=== PATIENT | male | born 1965 | race Caucasian/White ===

== ENCOUNTER 2018-10-19 00:54 | Inpatient (IN) | payer OTHER, SELFPAY ==
[2018-10-19] VITALS (9 sets, daily range): BP systolic 162–218; BP diastolic 83–104; PULSE 52–84; RESP 14–18; TEMP 36.4–37.3; O2SAT 92–99; BMI 29.2
--- NOTE | 2018-10-19 00:56 | ED.NEUROSD ---
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 States he thinks on or Saturday he noticed he had trouble using his right hand and could not write a check. Additionally his thoughts were mottled and clear and since then his speech has been mottled and abnormal. He has had multiple occasions where he has felt a bit unsteady and states that he has had trouble finding words. He denies any recent injury nor illness such as headaches, fever or chills. Onset (ago): day(s) Location: speech, right arm and ataxia History of same: No Severity: mild Quality: weak, numb, tingling and constant Relieving factors: none Exacerbating factors: none Context: sudden onset On Anticoagulants: No Associated symptoms: confusion Treatments Prior to Arrival: none Related Data Allergies Allergy/AdvReac Type Severity Reaction Status Date / Time No Known Drug Allergies Allergy Verified 10/19/18 01:08 Review of Systems Constitutional Denies chills, Denies fever(s), Denies lethargy and Reports weakness Eyes Denies change in vision, Denies eye discharge, Denies irritation and Denies loss of vision ENT Ears, Nose, Mouth, and Throat: Denies change in voice, Denies neck pain and Denies sore throat Cardiovascular Denies chest pain, Denies irregular heart rhythm, Denies lightheadedness, Denies palpitations, Denies dyspnea, Denies dyspnea on exertion and Denies orthopnea Respiratory Denies cough, Denies dyspnea, Denies dyspnea on exertion and Denies wheezing Gastrointestinal Gastrointestinal: Denies abdominal pain, Denies change in bowel habits, Denies diarrhea, Denies nausea and Denies vomiting Genitourinary Denies hematuria, Denies flank pain, Denies urinary incontinence and Denies urinary urgency Musculoskeletal Denies neck pain Integumentary/Breasts Denies pruritus, Denies erythema, Denies rash and Denies wounds Neurologic Reports abnormal speech, Reports confusion, Denies loss of vision, Reports sensory deficit and Reports weakness Psychiatric Denies anxiety, Reports confusion, Denies depression, Denies homicidal ideation and Denies suicidal ideation Endocrine Denies palpitations Hematologic/Lymphatic Denies easy bruising Allergic/Immunologic Denies wheezing PFSH Social History Smoking Status: Current every day smoker Social History Smoking Status: Current every day smoker Exam Narrative Exam Narrative: GENERAL: 53-year-old male appears stated age and in mild distress. His speech is clearly slurred HEAD: Atraumatic. Normocephalic. No temporal or scalp tenderness. EYES: Pupils equal round and reactive. Extraocular motions intact. No scleral icterus. No injection or drainage. ENT: Nose without bleeding, purulent drainage or septal hematoma. Throat without erythema, tonsillar hypertrophy or exudate. Uvula midline. Airway patent. NECK: Trachea midline. No JVD or lymphadenopathy. Supple, nontender, no meningeal signs. CARDIOVASCULAR: Regular rate and rhythm without murmurs, gallops, or rubs. RESPIRATORY: Clear to auscultation. Breath sounds equal bilaterally. No wheezes, rales, or rhonchi. GASTROINTESTINAL: Abdomen soft, non-tender, nondistended. No hepato-splenomegaly, or palpable masses. No guarding. EXTREMITIES: No clubbing, cyanosis, or edema. No joint tenderness, effusion, or edema noted. BACK: Nontender without deformity or crepitance. No flank tenderness. NEURO: AOx3. SKIN: No rash or erythema. Initial Vital Signs Initial Vital Signs: Vital Signs Temperature 97.9 F 10/19/18 01:09 Pulse Rate 84 10/19/18 01:09 Respiratory Rate 16 10/19/18 01:09 Blood Pressure 218/104 H 10/19/18 01:09 Pulse Oximetry 99 10/19/18 01:09 Scores NIH Stroke Scale Level of Conciousness: Alert, keenly responsive Ask month/age: Answers both questions correctly. Open/close eyes, close hand: Performs both tasks correctly Best gaze horizontal: Normal Visual monteiro: No visual loss Facial palsy: Minor paralysis, flattened nasolabial fold, asymmetry on smiling Left arm drift: No drift for full 10 sec Right arm drift: No drift for full 10 sec Left leg drift: No drift for full 10 sec Right leg drift: No drift for full 10 sec Limb ataxia: Absent Sensory on face/arms/legs: Normal, no sensory loss Best language: No aphasia, normal Dysarthria: Mild to mod,some slurring Extinction or inattention: No abnormality Total NIH Stroke scale score: 2 Course Orders Ordered: ED Orders 10/19/18 EKG-12 Lead Routine 10/19/18 01:03 Basic Metabolic Panel Stat Complete Blood Count AUTO DIFF Stat Partial Thromboplastin Time Stat Prothrombin Time INR Stat 10/19/18 01:17 CT head/brain wo con Stat Urine Drug Screen, Rapid Stat EKG-12 Lead Stat Sodium Chloride (Normal Saline 0.9%) 1,000 mls @ 150 mls/hr IV CONT MEIR Last Admin: 10/19/18 01:50 Dose: 150 mls/hr Consultations Consultation #1: hospitalist is happy to accept on his service Vital Signs - 8 hr 10/19/18 01:09 Temperature 97.9 F Pulse Rate 84 Respiratory Rate 16 Blood Pressure 218/104 H Pulse Oximetry 99 MDM - Neuro Symptoms/Deficit Lab Data Result diagrams: 10/19/18 01:03 10/19/18 01:03 Lab Results 10/19/18 10/19/18 10/19/18 Range/Units 01:03 01:03 01:03 WBC 9.6 (4.5-11.0) X10^3/uL RBC 5.19 (4.5-5.9) X10^6/uL Hgb 15.9 (13.5-17.5) g/dL Hct 46.0 (41-53) % MCV 88.6 (80-100) fL MCH 30.6 (26-34) PG MCHC 34.5 (30-36) % RDW 14.1 (11.6-14.8) % Plt Count 195 (150-400) X10^3/uL Neut % (Auto) 52.2 (50-75) % Lymph % (Auto) 31.7 (25-40) % [place] % (Auto) 10.2 (3-14) % Eos % (Auto) 4.8 H (2-4) % Baso % (Auto) 1.1 (0-2) % Neut # (Auto) 5000 (1782-0415) /uL Lymph # (Auto) 3000 (1324-3690) /uL [place] # (Auto) 1000 H (0-900) /uL Eos # (Auto) 500 H (0-450) /uL Baso # (Auto) 100 (0-100) /uL PT 11.4 (10.1-12.7) SECONDS INR 1.0 (0.9-1.3) APTT 31 (26.4-36.2) SECONDS Sodium 139 (137-145) mmol/L Potassium 3.8 (3.4-5.1) mmol/L Chloride 101 (98-107) mmol/L Carbon Dioxide 29 (22-32) mmol/L BUN 16 (9-20) mg/dL Creatinine 1.00 (0.66-1.25) mg/dL Estimated GFR > 60.0 (>60) mL/min BUN/Creatinine Ratio 16.0 (6-22) Glucose 111 H (70-100) mg/dL Calcium 9.9 (8.4-10.2) mg/dL Imaging Data CT scan - head: Radiologist's impression: No intracranial hemorrhage or mass effect ECG Data Attestation: I personally reviewed and interpreted this ECG as follows: Prior ECG tracings: not available for review Interpretation: EKG is normal sinus rhythm rate [74] and free of any signs of ischemia or ectopy. No ST segmental elevation or depression. No T wave inversions Discharge Plan Departure Patient Disposition: Admitted As Inpatient Clinical Impression: Cerebrovascular accident Qualifiers: CVA mechanism: unspecified Qualified Code(s): I63.9 - Cerebral infarction, unspecified Admit Date/Time: 10/19/18 02:20 Admit Provider: Ermias Conte
--- NOTE | 2018-10-19 01:17 | DI.CT.S_ITS ---
PROCEDURE: CT HEAD/BRAIN WO CON INDICATIONS: stroke TECHNIQUE: Noncontrast 4.5 mm thick angled axial sections acquired from the foramen magnum to the vertex, with coronal and sagittal reformats. For radiation dose reduction, the following was used: automated exposure control, adjustment of mA and/or kV according to patient size. COMPARISON: None. FINDINGS: Image quality: Diagnostic. CSF spaces: Basal cisterns are patent. No extra-axial fluid collections. Ventricles are normal in size and shape. Brain: No midline shift. No intracranial masses or hemorrhage. [place]-white matter interface is normal. Note is made of tortuosity of the and basilar artery. No Skull and face: Calvarium and visualized facial bones are intact, without suspicious lesions. Sinuses: Visualized sinuses and mastoids are clear. IMPRESSION: Unremarkable head CT. No acute intracranial hemorrhage. Note: The preliminary [facility] report and the final report are concordant. Dictated by: Nitesh Juárez M.D. on 10/19/2018 at 6:58 Approved by: Nitesh Juárez M.D. on 10/19/2018 at 6:59
[2018-10-19 01:23] LABS: Prothrombin Time 11.4 SECONDS (10.1-12.7)
[2018-10-19 01:24] LABS: Add Manual Diff / Slide Review NO; Basophils Absolute Auto 100 /uL (0-100); Basophils Percent Auto 1.1 % (0-2); Eosinophils Absolute Auto 500 /uL (0-450); Eosinophils Percent Auto 4.8 % (2-4); Hemoglobin 15.9 g/dL (13.5-17.5); Lymphocytes Absolute Auto 3000 /uL (1100-4500); Lymphocytes Percent Auto 31.7 % (25-40); Mean Corpuscular HGB Conc 34.5 % (30-36); Mean Corpuscular Hemoglobin 30.6 PG (26-34); Mean Corpuscular Volume 88.6 fL (80-100); Monocytes Absolute Auto 1000 /uL (0-900); Monocytes Percent Auto 10.2 % (3-14); Neutrophils Absolute Auto 5000 /uL (1500-7000); Neutrophils Percent Auto 52.2 % (50-75); Platelet Count 195 X10^3/uL (150-400); Red Blood Cell Count 5.19 X10^6/uL (4.5-5.9); Red Cell Distribution Width 14.1 % (11.6-14.8); White Blood Cell Count 9.6 X10^3/uL (4.5-11.0)
[2018-10-19 01:25] LABS: PTT Partial Thromboplastin Tim 31 SECONDS (26.4-36.2)
[2018-10-19 01:26] LABS: Blood Urea Nitrogen 16 mg/dL (9-20); Calcium 9.9 mg/dL (8.4-10.2); Carbon Dioxide 29 mmol/L (22-32); Chloride 101 mmol/L (98-107); Estimated Glomerular Filt Rate > 60.0 mL/min (>60); Glucose 111 mg/dL (70-100); HEMOLYSIS 17 (0-50); Potassium 3.8 mmol/L (3.4-5.1); Sodium 139 mmol/L (137-145)
[2018-10-19] MEDS: SODIUM CHLORIDE 0.9% 1,000 ML 150 ML IV (01:50)
--- NOTE | 2018-10-19 02:33 | DI.MRI.S_ITS ---
PROCEDURE: MR STROKE Pre- and post-contrast brain MRI, non-contrast brain MR angiogram, pre- and postcontrast neck MR angiogram INDICATIONS: Stroke, symptoms persisting > 24 hours TECHNIQUE: Brain: Noncontrast axial T1 spin echo, axial T2 fast spin echo, sagittal and axial FLAIR, coronal T2 fast spin echo, axial gradient echo, axial diffusion and ADC through the brain. After the administration of contrast, axial 3D VIBE of the cranial vasculature and brain. Brain MRA: Non-contrast 3-D time of flight MR angiogram, with multiple dpozujt-zdsksonmo-deoyztgleg (MIP) reformats performed. Neck MRA: Axial and sagittal TruFISP through the neck. Coronal dynamic MR angiogram during administration of contrast in the arterial and venous phases, with 3-dimenstional dorglkz-btsngvdlw-stxzxeahvr (MIP) reformats constructed from subtraction images. COMPARISON: [facility], CT, CT HEAD/BRAIN WO CON, 10/19/2018, 1:27. FINDINGS: Image quality: Excellent. BRAIN: CSF spaces: Ventricles are normal in size and shape. Basal cisterns are patent. No extra-axial fluid collections. Brain: Within the left rodri, there is abnormal diffusion weighted signal seen, as on series 20 image 58. There is associated abnormal dark signal seen, as on series 21 image 8 and there is developing T2-weighted/STIR signal seen within the left rodri at this site. No intracranial bleeds or mass effects. [place]-white matter interface is normal. Mild brain parenchymal volume loss is seen. Brainstem appears normal. Normal intravascular flow voids are present. No abnormal intracranial enhancement. Skull and face: Calvarial marrow signal is normal. Orbits appear normal. Sinuses: Sinuses and mastoids are clear. S-shaped nasal septal deviation can be seen. BRAIN MR ANGIOGRAM: Anterior circulation: Intracranial internal carotid arteries are normal in size and enhancement. There is a highly diminutive right A1 segment, with a corresponding robust left A1 segment. This is considered to be a normal developmental variant of the [place], of typically no clinical consequence. The flow within the paired anterior cerebral arteries is otherwise normal and symmetric. The flow within the middle cerebral arteries is normal and symmetric. The anterior communicating artery is seen. No stenoses, occlusions, or aneurysms. Posterior circulation: The right vertebral artery is not seen. K artery is unremarkable. No abnormality of the basilar artery can be seen. The flow within the posterior cerebral arteries is normal and symmetric. No stenoses, occlusions, or aneurysms. NECK MR ANGIOGRAM: Carotids: Great vessels demonstrate a conventional anatomy as they arise from the aortic arch. The origins of the common carotid arteries appear patent. The calibers and courses of both common carotid arteries are normal. The bifurcation regions appear normal bilaterally. The internal carotid arteries demonstrate normal course and caliber. Posterior circulation: The right vertebral artery is only faintly seen. The left vertebral artery is unremarkable. There is a normal appearing basilar artery. Miscellaneous: Subclavian arteries appear patent. Pre-contrast images through the neck show no soft tissue abnormalities. IMPRESSION: BRAIN MRI: Subacute infarction involving the left rodri. Brain parenchymal volume loss is seen, which is more prominent than would be expected for a patient of this age. Please correlate with toxic/metabolic exposures, including ethanol. BRAIN MR ANGIOGRAM: There is a [place] anomaly noted, with a highly diminutive right A1 segment and a correspondingly robust left A1 segment. NECK MR ANGIOGRAM: The right vertebral artery is only faintly seen. It is presumed that there is a high-grade stenosis at its origin. If clinically appropriate, please consider a CT angiogram for further evaluation/confirmation. Dictated by: Aime Franco M.D. on 10/20/2018 at 10:46 Approved by: Aime Franco M.D. on 10/20/2018 at 10:52
--- NOTE | 2018-10-19 02:43 | PC.NURSE ---
normal saline to continue in acute care
[2018-10-19 03:40] LABS: Urine Amphetamines Negative (Negative); Urine Barbiturates Negative (Negative); Urine Benzodiazepines Negative (Negative); Urine Cocaine Negative (Negative); Urine MDMA Negative (Negative); Urine Methadone Negative (Negative); Urine Methamphetamines Negative (Negative); Urine Morphine/Opi cutoff 2000 Negative (Negative); Urine Oxycodone Negative (Negative); Urine Phencyclidine Negative (Negative); Urine Tetrahydrocannabinol Negative (Negative); Urine Tricyclic Antidepressant Negative (Negative)
--- NOTE | 2018-10-19 04:02 | P.HP_ITS ---
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 The patient states he woke with the symptoms on Saturday morning 2 days ago. The patient reports going to bed night in his normal state of health and waking with symptoms of dysarthria, difficulty word finding and discoordination. He relates of going to the bank and could not recall how to write a check and had difficulty holding a pen. The patient is not been seen by healthcare provider for several years and is currently on no medication and reports no allergies to medications. He does have ?bad? sleep apnea but does not use his CPAP machine. He is a current smoker since age 20 and endorses a 2 pack-a-day habit. He has previously tried nicotine patches which she states did not help. He reports no other prodromal symptoms with no recent cold or illness, has had no fevers or chills, headaches or dizziness, visual changes or difficulty swallowing. Reports no chest pain or palpitations, shortness of breath or cough. He denies dyspnea on exertion. Denies abdominal pain, nausea vomiting, constipation or diarrhea. He reports no difficulty urinating and has nocturia 2-3 times nightly. He reports no muscle or joint pains. Upon arrival in the ER the patient was found to be afebrile with temperature of 97.9?, heart rate of 84 and a blood pressure of 218/104, respiratory rate 16 and an oxygen saturation of 99% on room air. A CT of the head was obtained which shows no intracranial hemorrhage or mass effect does identify atherosclerosis. On laboratory analysis the patient has white count 9.6 with a hemoglobin of 15.9 and hematocrit of 46.0 with platelets 195. His coagulation studies are within normal limits. His electrolytes are within normal limits with preserved renal function with a BUN of 16 and creatinine 1.0. His nonfasting glucose is 111. The patient is admitted diagnosis of stroke related to persistent symptoms greater than 24 hours including right facial droop, dysarthria, right hand and leg weakness, discoordination. Patient History Medical History (Updated 10/19/18 @ 03:17 by UMANG Justice) Current every day smoker (Acute) Hypertension (Acute) Sleep apnea (Acute) Surgical History (Updated 10/19/18 @ 03:15 by UMANG Justice) History of bilateral inguinal hernia repair (Acute) History of rhinoplasty (Acute) Family History (Updated 10/19/18 @ 03:31 by UMANG Justice) Father Hypertension Dementia Mother Cancer Social History household members: spouse Smoking Status: Current every day smoker Family & Social History Safety & Behavioral: Feels Safe in Current Yes Environment Been Physically Hurt or Yes Threatened By a Person Tobacco & Substance use: Smoking Status Current every day smoker alcohol intake frequency holiday/special occasion Substance Use Type does not use Comment: The patient lives at home with his to whom it has been for 27 years. He [employer] in [place] 3 weeks at a time to help care for his elderly father with dementia. The patient's father is still living with history of dementia and hypertension and the patient states that he is no longer taking medication. His mother has from metastatic colon cancer. He has no siblings and has 3 daughters and 2 sons all of whom he reports are in good health. Smoking: Patient endorses a history smoking 2 packs per day since age 20 for an approximately 66 pack year history. Alcohol: Patient endorses alcohol that varies between when he is home and when he is in [place]. His frequency varies from 1 time a week when in [place] to every other day when in [place]. Caffeine: The patient endorses drinking coffee frequently up until he goes to bed. Substance use: He denies recreational pharmaceuticals, herbal or cannabis products. Advanced directives: The patient does not have an advanced directive, and direct discussion he states his wish to be a FULL CODE. He designates his Elena Castro to be his surrogate decision maker. Meds Home Medications Medication Instructions Recorded Confirmed Type No Known Home Medications 10/19/18 10/19/18 History Allergies Allergy/AdvReac Type Severity Reaction Status Date / Time No Known Drug Allergies Allergy Verified 10/19/18 01:08 Review of Systems Review of Systems All systems reviewed & are unremarkable except as noted in HPI and below Exam Vital Signs (past 8 hours): - 10/19/18 01:09 10/19/18 02:43 10/19/18 02:56 Temperature 97.9 F 97.6 F Pulse Rate 84 71 68 Respiratory Rate 16 14 18 Blood Pressure 218/104 H 196/92 H 188/101 H Pulse Oximetry 99 96 97 Oxygen Delivery Method Room Air Oxygen Flow Rate 0 Narrative Exam Narrative: GENERAL APPEARANCE: well developed, well nourished, with neurological deficits HEAD: Facial asymmetry with right facial droop, flattened nasolabial fold, atraumatic, no scalp lesions. EYES: No ptosis, pupils equal, round, reactive to light and accommodation, sclera non-icteric, extraocular movement intact without nystagmus, visual monteiro assessed is grossly intact by confrontation EARS: normal external structures, no ear pain NOSE: sinuses non tender to percussion, no rhinorrhea ORAL CAVITY: mucosa moist without lesions or exudate, palate normal, tongue in midline, managing own secretions. THROAT: normal, no erythema, no exudate, pharynx normal NECK/THYROID: neck supple, no jugular venous distention, no carotid bruit, no thyromegaly, trachea midline. LYMPH NODES: no cervical or supraclavicular lymphadenopathy. SKIN: warm and dry, no suspicious lesions, no rashes, good turgor. HEART: regular rate and rhythm, S1-S2 without murmur, no rubs or gallops, brisk capillary refill, no edema LUNGS: Upper lobes clear to auscultation bilaterally, right basilar crackles without wheezing, no cough present CHEST: Symmetrical movement, no accessory muscle use, no pain to AP and lateral compression. ABDOMEN: Soft, round, tympanic to percussion, no distention, no epigastric or abdominal tenderness on palpation, no guarding or peritoneal signs, no organomegaly, no flank or suprapubic tenderness, active bowel tones. BACK: Normal curvature, nontender to palpation, no CVA tenderness on percussion EXTREMITIES: On equal strength with right upper and lower extremity slightly weaker than left, no joint or bony deformities, well perfused. NEUROLOGIC: AAO x4, right facial droop, dysarthria, mild discoordination of right upper and lower extremities, sensory reported as intact to light on a filament touch bilateral face, upper and lower extremities, hearing grossly normal to speech. PSYCH: alert, good eye contact, dismissive attitude. Objective Labs Result Diagrams: 10/19/18 01:03 10/19/18 01:03 Labs: Laboratory Results - last 24 hr 10/19/18 10/19/18 10/19/18 01:03 01:03 01:03 WBC 9.6 RBC 5.19 Hgb 15.9 Hct 46.0 MCV 88.6 MCH 30.6 MCHC 34.5 RDW 14.1 Plt Count 195 Neut % (Auto) 52.2 Lymph % (Auto) 31.7 [place] % (Auto) 10.2 Eos % (Auto) 4.8 H Baso % (Auto) 1.1 Neut # (Auto) 5000 Lymph # (Auto) 3000 [place] # (Auto) 1000 H Eos # (Auto) 500 H Baso # (Auto) 100 PT 11.4 INR 1.0 APTT 31 Sodium 139 Potassium 3.8 Chloride 101 Carbon Dioxide 29 BUN 16 Creatinine 1.00 Estimated GFR > 60.0 BUN/Creatinine Ratio 16.0 Glucose 111 H Calcium 9.9 Assessment & Plan Assessment & Plan narrative: The patient is admitted to the hospital due to the persistence and severity of his neurological deficits warranting further evaluation and treatment. 1. Acute cerebrovascular accident. Present on admission. -last known normal was at bedtime on October 16. Patient has had persistent symptoms that he reports have gotten slightly better in the ensuing 2 days. No complaints of headache or nausea. -patient has persistent right facial droop, dysarthria slight weakness of the right arm and leg, mild discoordination right arm and leg, GCS score 15, NIH score 5. -CT scan obtained in the emergency department finds no intracranial hemorrhage or mass effect, EKG is normal sinus rhythm -patient's hypertensive upon arrival at 218/104 improved to 188/101. Will allow permissive hypertension with acute stroke. -labetalol 10 mg IV as needed blood pressure greater than 200/100, -will start aspirin 81 mg daily -will start atorvastatin 80 mg daily -obtain MR stroke protocol -obtain echocardiogram -patient is NPO, will continue normal saline 75 cc/hour. -PT and OT to evaluate and treat, ST to evaluate and treat with swallow evaluation. 2. Hypertension, presumed chronic, present on admission -patient presents with a blood pressure of 218/104. Symptoms persist with blood pressure D managed to 188/100. -patient is currently on no medication and states he is not been under medical care for several years. -Will allow permissive hypertension with acute stroke. -Labetalol 10 mg IV as needed blood pressure greater than 200/100. 3. Chronic tobacco dependence, active. -patient provides history of smoking 2 packs per day since age 20 with a 66 pack year history of smoking. -patient denies shortness of breath or dyspnea on exertion, no complaints of cough. -patient teaching provided on smoking and smoking cessation, patient is not interested in stopping smoking. -offered Nicoderm patch which patient refused. 4. Chronic Obstructive sleep apnea, stable. -patient has sleep apnea that he describes as bad, he does not use his CPAP stating he feels that the settings need to be changed. -continuous pulse oximetry, -respiratory therapy to evaluate and treat with CPAP per protocol. The patient is admitted to the hospital related to severity of symptoms, risk for complications and adverse events. He is admitted as an inpatient with expected length of stay to be greater than 2 midnights. Scores GCS Jacqueline coma scale eye opening: Spontaneous [place] coma scale verbal response: Orientated Jacqueline coma scale motor response: Obey commands Jacqueline coma scale total score: 15 NIHSS Level of Conciousness: Alert, keenly responsive Ask month/age: Answers both questions correctly. Open/close eyes, close hand: Performs both tasks correctly Best gaze horizontal: Normal Visual monteiro: No visual loss Facial palsy: Minor paralysis, flattened nasolabial fold, asymmetry on smiling Left arm drift: No drift for full 10 sec Right arm drift: No drift for full 10 sec Left leg drift: No drift for full 10 sec Right leg drift: No drift for full 10 sec Limb ataxia: Present in two limbs Sensory on face/arms/legs: Normal, no sensory loss Best language: Mild to moderate, slurs some words Dysarthria: Mild to mod,some slurring Extinction or inattention: No abnormality Total NIH Stroke scale score: 5
--- NOTE | 2018-10-19 05:43 | PC.NURSE ---
Pt admitted to unit as AxOx3 accompanied by his daughter. Ambulates independently with just a standby assist. NIH=2 Slight right-sided facial drooping. Occassionally slurs speech. Lack of coordination more pronounced and Right sided upper and lower ext. HTN NPO NS@75mL/hr Tele NSR No pain UA sent Skin intact
[2018-10-19 05:59] LABS: BUN Creatinine Ratio 14.4 (6-22); Blood Urea Nitrogen 13 mg/dL (9-20); Calcium 9.4 mg/dL (8.4-10.2); Carbon Dioxide 26 mmol/L (22-32); Chloride 105 mmol/L (98-107); Cholesterol 154 mg/dL (140-199); Estimated Glomerular Filt Rate > 60.0 mL/min (>60); Glucose 122 mg/dL (70-100); HDL Cholesterol 24 mg/dL (40-60); HEMOLYSIS < 15 (0-50); LDL Cholesterol Calculated 95 mg/dL (<100); Magnesium 2.1 mg/dL (1.6-2.3); Potassium 3.8 mmol/L (3.4-5.1); Sodium 139 mmol/L (137-145); Triglycerides 175 mg/dL (35-150)
--- NOTE | 2018-10-19 08:35 | PM.PN.1 ---
Subjective Date Patient Seen: 10/19/18 Exam Vital Signs (past 8 hours): - 10/20/18 05:00 10/20/18 05:41 10/20/18 06:15 Temperature 97.4 F L Pulse Rate 64 63 60 Respiratory Rate 16 Blood Pressure 180/109 H 180/109 H 172/98 H Pulse Oximetry 93 Oxygen Delivery Method Room Air Oxygen Flow Rate 0 Objective Labs Result Diagrams: 10/19/18 01:03 10/19/18 05:21 Labs: Laboratory Results - last 24 hr 10/19/18 01:03 Hemoglobin A1c 5.1 Assessment & Plan Assessment & Plan narrative: Brief progress note: Patient seen and examined. Physical exam unchanged. Agree with admitting providers assessment and plan. Discussed cardiovascular risk factors and modification of lifestyle in detail. The patient is not willing to quit smoking. He threatened to leave Against Medical Advice several times as he wanted to smoke a cigarette. Provided nicotine patch which he denied. Ordered Ativan 1 mg every 6 hours as needed for anxiety. Patient reluctantly decided to stay overnight to pursue MR stroke protocol tomorrow morning and to continue to monitor and control persistent hypertension.
--- NOTE | 2018-10-19 09:00 | PT.IIE ---
Surgical History (Last Updated 10/19/18 @ 03:15 by UMANG Justice) History of bilateral inguinal hernia repair (Acute) History of rhinoplasty (Acute) Medical History (Last Updated 10/19/18 @ 03:17 by UMANG Justice) Current every day smoker (Acute) Hypertension (Acute) Sleep apnea (Acute) Physical Therapy Inpatient Evaluation/Re-Eval M1 PT/OT-IP Prior Functional Status Start: 10/19/18 09:39 Freq: NEEDED Status: Active Protocol: Document 10/19/18 09:00 [facility] (Rec: 10/19/18 09:52 [facility] [id number]) Medical Review Prior Functional Status Medical History Reviewed Yes Mobility and Gait indep. community ambulator without device Activities of Daily Living and IADL's indep. I/ADLs including driving Social History Household Members spouse Living Arrangements House Number of Floors (Floors) One Floor Number of Stairs To Enter/Railing? 2-3 steps to enter with one rail Employment Status Retired Additional Social History Comment Pt retired from the [employer]. He spends time in [place] with his father who is living at home and has dementia. The pt permanently resides here in [place]. Pt had dysarthria, facial droop, R hand weakness and incoordination on Saturday, 10/17. He presented to the ER on 10/19/2018. Head CT was negative for acute findings, awaiting MRI. M2 PT-IP Current Condition Start: 10/19/18 09:39 Freq: NEEDED Status: Active Protocol: Document 10/19/18 09:00 [facility] (Rec: 10/19/18 09:52 [facility] [id number]) Physical Therapy Current Condition Current Condition Evaluation Date 10/19/18 Treatment Diagnosis CVA M3 PT-IP Subjective Start: 10/19/18 09:39 Freq: NEEDED Status: Active Protocol: Document 10/19/18 09:00 [facility] (Rec: 10/19/18 09:52 [facility] [id number]) Subjective Physical Therapy Visit Type Type Initial Evaluation Visit Start Time 09:00 Visit Stop Time 09:30 Total Visit Minutes 30 Number of COLLECTIONS SPECIALIST Visits 0 Physical Therapy Visit Comments Patient Comments pt wants to get out of the hospital, he wants coffee and to smoke. Patient Goals to get out of hospital M4 PT-IP Mobility and Gait Start: 10/19/18 09:39 Freq: NEEDED Status: Active Protocol: Document 10/19/18 09:00 [facility] (Rec: 10/19/18 09:52 [facility] [id number]) PT-Bed Mobility Assessment Supine to Sit Supine to Sit Independent Scooting Scooting to Edge of Bed Independent PT-Transfer Assessment Sit to and From Stand Sit to and from Stand Independent Equipment Transfer Assistive Device Gait Belt Transfers Transfer Destination Chair Transfer Technique Stand Step Pivot Transfer Ability Level of Assist Independent Gait Assessment Gait Gait Assistance Required: Independent Distance (Feet) 250 Assistive Devices Assistive Device Gait Belt Gait Deviations General Gait Pattern Wide Based Gait Factors Limiting Gait Function Factors Limiting Gait Function Decreased Activity Tolerance Stair Climbing Assessment Evaluation Level of Assist On Stairs Standby Assistance Devices Stair Climbing Assistive Devices Right Railing Technique/Endurance Stair Climbing Direction Ascend and Descend Stair Climbing Technique Step Over Step Number of Steps Climbed 3 Query Text: Stair Climbing Set # Repetitions (reps) 1 PT-Balance Assessment Sitting Balance and Reactions Static Sitting Balance Ability Good Dynamic Sitting Balance Ability Good Standing Balance and Reactions Static Standing Balance Ability Good Dynamic Standing Balance Ability Fair Device Used none Balance Tests Romberg >30 sec eyes open and closed Tandem Standing 8 sec each Comments Other Balance Tests/Deviations/Treatment poor tolerance to heel-toe : walking M5 PT-IP Objective Assessments Start: 10/19/18 09:39 Freq: NEEDED Status: Active Protocol: Document 10/19/18 09:00 [facility] (Rec: 10/19/18 09:52 [facility] [id number]) Orientation Orientation/Cognition Level of Alertness Alert Gross Range of Motion Lower Extremity ROM Assessment Within Functional Limits Strength Lower Extremity Strength Assessment Within Functional Limits Hip flexion 4/5 B Knee flexion and extension 5/5 B Ankle DF 5/5 B Coordination Assessment Assessment Finger to Nose Test Minimal Impairment Pronation/Supination Test Normal Performance Foot Tapping Test Normal Performance Heel on Gutierrez Test Normal Performance Sensation Assessment Sensation Gross Sensation WNL Muscle Tone Muscle Tone WNL Yes M6 PT-IP Treatment Start: 10/19/18 09:39 Freq: NEEDED Status: Active Protocol: Document 10/19/18 09:00 [facility] (Rec: 10/19/18 09:52 [facility] [id number]) Physical Therapy Treatment Education Education Provided Safety Other Treatments Other Treatment Performed BP 179/94 before session- RUE M7 PT-IP Assessment and Plan Start: 10/19/18 09:39 Freq: NEEDED Status: Active Protocol: Document 10/19/18 09:00 [facility] (Rec: 10/19/18 09:52 [facility] [id number]) PT Summary Assessment and Plan Potential Rehabilitation Potential Good Status of Condition at Evaluation Evolving Summary Impairments Balance Activity Tolerance Assessment Summary Pt presents with mild impairment in coordination of the RUE with finger to nose testing, but other coordination testing appear to be WNL. Pt without loss of balance with level surface gait, but was unable to maintain balance with heel-to- toe walking. At this time, pt appears to be SBA to indep with all basic functional mobility, and expect he will be able to return home when medically stable. Depending on other rehab team recommendations, he may be a good candidate for outpatient rehab services including PT, OT (TBD) and MATERIAL ASSEMBLER (TBD). No further acute physical therapy needs at time. Frequency of Treatment Frequency Of Treatment Discharge Recommendations To Nursing Amount of Assist Needed 1 Person Assist Discharge Recommendations PT Discharge Recommendations Home with Assistance Outpatient PT
--- NOTE | 2018-10-19 11:53 | PC.NURSE ---
Addendum entered by Laura Mclaughlin R.N. 10/19/18 12:05: Losartan started for BP, continues to refuse Topical nicotine patch. Requests I return with lovenox, I will consider that one Original Note: Am shift Pt is a/o x4, certainly with some agitation this am. Doesn't want to have nicotine patch, even though Pt is a 2 PPD smoker. Frustrated with not having further diagnostic testing done this AM. Wants to leave, Updated Dr Turcios, as Pt is agitated and non compliant. Daughter has left for work, but will call and check in with Pt. Vistitors have been in and out. RA Spo2 94% RA, coarse productive cough. Denies pain. Tele in place.
--- NOTE | 2018-10-19 12:03 | CM.IDA ---
Addendum entered by KURTIS Ashley 10/19/18 12:56: Returned to pt's room at the request of Dr Turcios. Pt stating that he is going to leave no matter what at 6 o clock this evening to have a smoke. Met w/pt and his , reiterated Dr Turcios's recommendation today for medical POC; transfer to [facility] for MRI and stay this evening to monitor blood pressure, possible medication changes needed upon DC, likely Saturday. Explained the term AMA Against Medical Advice and how pt's insurance coverage may be affected if he chooses to leave AMA. Then reviewed risk of leaving AMA and reviewed other coping strategies w/o nicotine to remain at the hospital? Pt getting irritated w/his , family and this CNC APPLICATIONS ENGINEER for encouraging pt to remain admitted and states if I can't leave to go smoke at 6 OClock tonight I'd rather go home and fucking . This CNC APPLICATIONS ENGINEER left pt's room at this time. RN Laura standing outside of door during this conversation. Dr Turcios updated. JW Original Note: Initial DCP Assessment Note: Pt is a 53 yo male, resident of [facility]. Pt admitted in for stroke like symptoms that developed days ago. PCP: Unknown Payer: [employer]. Pt discussed in multidisciplinary rounds this morning. Pt is a current everyday smoker. According to Dr Turcios and RN Coordinator Melissa, [facility] may not have MRI capabilities today, pt may need to transfer to [facility] for testing and return for treatment. Met w/pt and his Elena at bedside, briefly explained role. Pt sitting up in his chair, A+O and able to speak w/this CNC APPLICATIONS ENGINEER. Both pt and spouse are very anxious to speak w/ Dr Turcios to learn about next steps in pt's medical POC. More thorough DCP assessment will need to wait until medical POC clearer. Pt/family awaiting Dr visit this morning. KURTIS Ashley
[2018-10-19] MEDS: PANTOPRAZOLE 20 MG TABLET PO (12:10)
[2018-10-19] MEDS: ASPIRIN EC 81 MG TABLET PO (12:10)
[2018-10-19] MEDS: LOSARTAN 50 MG TABLET PO (12:28)
[2018-10-19] MEDS: hydroCHLOROthiazide 25 MG TABLET 50 MG PO (15:45)
[2018-10-19] MEDS: NICOTINE 21 MG PATCH TOP (16:37)
[2018-10-19] MEDS: LORazepam 1 MG TABLET PO (16:37)
[2018-10-19 17:50] LABS: Hemoglobin A1C% w Est Avg Glu 5.1 % (4.0-6.0)
--- NOTE | 2018-10-19 22:56 | PC.NURSE ---
Evening Shift Note Pt expressing desire to leave facility d/t inablility to smoke. This RN in room w/ MD HONORIO explaining options to pt. Pt response what else can I fucken do Pt decided to stay. Orders put in by for Nicotine patch/Xanax, parameters changed for IV labetalol. This RN in pt room w/ Nicotine patch and Xanax in hand. RN asked RN if he wanted meds, pt compliant and at bedside. Pt left alone and able to sleep for a few hours w/ hourly checks. Pt awoken this evening, NIH scale done, BP rechecked and within parameters. Pt much more cooperative and pleasant after uninterrupted rest. Plan is for MRI in am. Pt refused some meds/interventions.
[2018-10-20] VITALS (8 sets, daily range): BP systolic 169–190; BP diastolic 92–109; PULSE 60–73; RESP 16–18; TEMP 36.3–36.4; O2SAT 92–96
[2018-10-20] MEDS: PANTOPRAZOLE 20 MG TABLET PO (05:40)
[2018-10-20] MEDS: LABETALOL 20 MG/4 ML SYRINGE 10 MG IV (05:41)
[2018-10-20] MEDS: NICOTINE 21 MG PATCH TOP (08:46)
[2018-10-20] MEDS: ASPIRIN EC 81 MG TABLET PO (08:46)
[2018-10-20] MEDS: hydroCHLOROthiazide 25 MG TABLET 50 MG PO (08:46)
[2018-10-20 08:49] LABS: BUN Creatinine Ratio 13.6 (6-22); Blood Urea Nitrogen 15 mg/dL (9-20); Carbon Dioxide 28 mmol/L (22-32); Chloride 103 mmol/L (98-107); Estimated Glomerular Filt Rate > 60.0 mL/min (>60); Glucose 106 mg/dL (70-100); HEMOLYSIS < 15 (0-50); Potassium 4.2 mmol/L (3.4-5.1); Sodium 139 mmol/L (137-145)
--- NOTE | 2018-10-20 09:00 | PT.IPTN ---
Current Diagnoses Cerebral infarction, unspecified (10/19/18) Physical Therapy Treatment Note M2 PT-IP Current Condition Start: 10/19/18 09:39 Freq: NEEDED Status: Active Protocol: Document 10/19/18 09:00 [facility] (Rec: 10/19/18 09:52 [facility] [id number]) Physical Therapy Current Condition Current Condition Evaluation Date 10/19/18 Treatment Diagnosis CVA M3 PT-IP Subjective Start: 10/19/18 09:39 Freq: NEEDED Status: Active Protocol: Document 10/20/18 09:00 RS (Rec: 10/20/18 10:28 RS [id number]) Subjective Physical Therapy Visit Type Type Treatment Note Visit Start Time 08:20 Visit Stop Time 09:00 Total Visit Minutes 40 Physical Therapy Visit Comments Patient Comments Pt looking forward to breaking free today. Therapy Pain Assessment Pain When Pain Assessed At Rest Pain Present Pain Present Denied Pain M4 PT-IP Mobility and Gait Start: 10/19/18 09:39 Freq: NEEDED Status: Active Protocol: Document 10/20/18 09:00 RS (Rec: 10/20/18 10:28 RS [id number]) PT-Bed Mobility Assessment Supine to Sit Supine to Sit Independent Scooting Scooting to Edge of Bed Independent PT-Transfer Assessment Sit to and From Stand Sit to and from Stand Independent Equipment Transfer Assistive Device None Transfers Transfer Destination Bed Chair Transfer Technique Stand Step Pivot Transfer Ability Level of Assist Independent Gait Assessment Gait Gait Assistance Required: Independent Distance (Feet) 500 Assistive Devices Assistive Device None Gait Deviations General Gait Pattern Within Normal Limits Factors Limiting Gait Function Factors Limiting Gait Function Decreased Activity Tolerance Stair Climbing Assessment Evaluation Level of Assist On Stairs Standby Assistance Devices Stair Climbing Assistive Devices Right Railing Technique/Endurance Stair Climbing Direction Ascend and Descend Stair Climbing Technique Step Over Step Number of Steps Climbed 3 Query Text: Stair Climbing Set # Repetitions (reps) 1 PT-Balance Assessment Sitting Balance and Reactions Static Sitting Balance Ability Normal Dynamic Sitting Balance Ability Normal Standing Balance and Reactions Static Standing Balance Ability Good Dynamic Standing Balance Ability Good Device Used none Comments Other Balance Tests/Deviations/Treatment DGI : Sapp 52/56 M5 PT-IP Objective Assessments Start: 10/19/18 09:39 Freq: NEEDED Status: Active Protocol: Document 10/20/18 09:00 RS (Rec: 10/20/18 10:28 RS [id number]) Orientation Orientation/Cognition Level of Alertness Alert Orientation Name Age Birthday Month Date Year Day of Week Place Situation Language Function Ability No Deficits Noted Safety Awareness Understands Safety Issues M6 PT-IP Treatment Start: 10/19/18 09:39 Freq: NEEDED Status: Active Protocol: Document 10/20/18 09:00 RS (Rec: 10/20/18 10:28 RS [id number]) Physical Therapy Treatment Education Education Provided Safety Other Treatments Other Treatment Performed Pt educated at length on benefits of smoking cessation, importance of finding a cessation counselor and possibly a electric deicer assembler or multi slide machine tender (pt concerned about gaining weight if he quits), and the need for daily activity. M7 PT-IP Assessment and Plan Start: 10/19/18 09:39 Freq: NEEDED Status: Active Protocol: Document 10/20/18 09:00 RS (Rec: 10/20/18 10:28 RS [id number]) PT Summary Assessment and Plan Potential Rehabilitation Potential Good Status of Condition at Evaluation Stable Summary Impairments Balance Activity Tolerance Progress Towards Goals Safe For Discharge Assessment Summary MD requesting pt continue to be seen while still here at the hospital. Pt seems open to quitting smoking but has several concerns. Pt provided with education on the process and what kind of assist might be available to him. From a physical standpoint, pt's strength and balance are considered WFL. Pt's activity limitations are more related to chronic pain than from any residual affects related to this hospitalization. Patient is safe to discharge home once medically ready with outpatient PT f/u either here or in [place]. Frequency of Treatment Frequency Of Treatment Discharge Recommendations To Nursing Amount of Assist Needed Independent Discharge Recommendations PT Discharge Recommendations Home with Assistance Outpatient PT
--- NOTE | 2018-10-20 09:42 | PC.NURSE ---
Addendum entered by Laura Mclaughlin R.N. 10/20/18 13:18: Pt discharged @ 1300 to private vehicle with spouse. IV tele out, [place]. Pt more cooperative with this RN this shift, although clearly, quiet eager to get out of hospital. Pt wheeled to car, noted , Pt was smoking as he left parking lot. Original Note: Am shift Pt is A/ox 4, in better spirits than this RN's assessment of Pt yesterday, although still vocal about leaving at 12 noon, as he has been told that's when he's good to go. Dr Turcios in with Pt and giving the update of MRI and then potential d/c . Will give PO Ativan prior to MRI today. BP still elevated, will recheck with manual BP cuff to confirm. MRI interview complete. Pt is more easy going to day. Nicotine patch in place. NIH 2. Subtle asymmetry to face and intermitent slur noted to speech.
[2018-10-20] MEDS: cloNIDine 0.1 MG TABLET PO (10:05)
[2018-10-20] MEDS: LOSARTAN 50 MG TABLET PO (10:39)
--- NOTE | 2018-10-20 10:40 | PM.DS.1 ---
History of Present Illness Date Patient Seen: 10/19/18 Chief complaint: slurring speech loss of elderly companion x24 hours Narrative: Written by Ermias HECK: Dg Castro is a 53-year-old male patient with history significant for hypertension not on medication, current daily smoker and sleep apnea who presents to the ER today with dysarthria, right facial droop, right hand weakness and discoordination. The patient states he woke with the symptoms on Saturday morning 2 days ago. The patient reports going to bed night in his normal state of health and waking with symptoms of dysarthria, difficulty word finding and discoordination. He relates of going to the bank and could not recall how to write a check and had difficulty holding a pen. The patient is not been seen by healthcare provider for several years and is currently on no medication and reports no allergies to medications. He does have ?bad? sleep apnea but does not use his CPAP machine. He is a current smoker since age 20 and endorses a 2 pack-a-day habit. He has previously tried nicotine patches which she states did not help. He reports no other prodromal symptoms with no recent cold or illness, has had no fevers or chills, headaches or dizziness, visual changes or difficulty swallowing. Reports no chest pain or palpitations, shortness of breath or cough. He denies dyspnea on exertion. Denies abdominal pain, nausea vomiting, constipation or diarrhea. He reports no difficulty urinating and has nocturia 2-3 times nightly. He reports no muscle or joint pains. Upon arrival in the ER the patient was found to be afebrile with temperature of 97.9?, heart rate of 84 and a blood pressure of 218/104, respiratory rate 16 and an oxygen saturation of 99% on room air. A CT of the head was obtained which shows no intracranial hemorrhage or mass effect does identify atherosclerosis. On laboratory analysis the patient has white count 9.6 with a hemoglobin of 15.9 and hematocrit of 46.0 with platelets 195. His coagulation studies are within normal limits. His electrolytes are within normal limits with preserved renal function with a BUN of 16 and creatinine 1.0. His nonfasting glucose is 111. The patient is admitted diagnosis of stroke related to persistent symptoms greater than 24 hours including right facial droop, dysarthria, right hand and leg weakness, discoordination. Discharge Providers Date of admission: 10/19/18 02:20 Discharge Date: 10/20/18 Consults: 10/19/18 02:33 Consult to Discharge Planning Routine Comment: stroke Consult to Speech Therapy Evaluate & Treat Comment: swallow evaluation, stroke, dysarthria, right hand Physician Instructions: Evaluate and treat 10/19/18 02:37 Consult to Occupational Therapy Evaluate & Treat Comment: Stroke, dysarthria, right hand weakness Physician Instructions: Evaluate and treat Consult to Physical Therapy Evaluate & Treat Comment: Stroke, dysarthria, right hand weakness Physician Instructions: Evaluate and Treat 10/19/18 04:08 Consult to Respiratory Therapy Evaluate & Treat Comment: Stroke, dysarthria, Sleep apnea, evaluate for CPAP Physician Instructions: Evaluate and treat 10/20/18 08:03 Consult to Physical Therapy Evaluate & Treat Comment: Physician Instructions: Evaluate and Treat Discharge provider: Hope Turcios DO Summary Discharge Diagnosis: 1. Subacute left rodri cerebrovascular accident, present on admission. Active. 2. Hypertension, chronic, present on admission. Active. 3. Tobacco dependence, chronic, present on admission. Active. 4. Obstructive sleep apnea, chronic, present on admission. Active. 5. Alcohol dependence vs abuse, chronic, present on admission. Stable. Hospital Course: Dg Castro is a 53-year-old male patient with a past medical his significant for untreated hypertension, current daily smoker and obstructive sleep apnea who presented to the ED for stroke symptoms including dysarthria, right facial droop, right hand weakness and discoordination x 2 days. 1. Subacute left rodri cerebrovascular accident, present on admission. Active. -Patient's last known normal was at bedtime on 10/16/18. Patient had persistent symptoms with reported slight improvement in the ensuing 2 days. No complaints of headache or nausea. -Patient has persistent subtle right facial droop, dysarthria, weakness of the right arm and leg, and discoordination of right arm and leg. Initial GCS score 15 and NIH score 5. -CT brain without contrast did not demonstrate and intracranial abnormality. -EKG demonstrated normal sinus rhythm. Continued to monitor closely on telemetry. No ectopy throughout hospitalization other than mild bradycardia while sleeping likely related to TORRI. -Hypertensive upon arrival at 218/104 improved to 188/101. Allowed for permissive hypertension with acute stroke. Ordered labetalol 10 mg IV every 6 hours as needed for SBP > 200 mmHg and DBP > 110 mmHg., -Started and continued aspirin 81 mg daily and atorvastatin 80 mg daily. -MR stroke protocol demonstrated subacute infarction involving the left rodri and brain parenchymal volume loss more prominent than would be expected for a patient of this age likely related to alcohol use. -Continued IV fluids for 24 hours and to support cerebral perfusion. -Continued PT and OT evaluation and treatment. ST signed off. Recommended continued PT outpatient. 2. Hypertension, chronic, present on admission. Active. -Initial BP 218/104. -Patient is currently not medicated and has not been under medical care for several years. He has previously been seen at the [facility]. -EKG demonstrated normal sinus rhythm. Continued to monitor closely on telemetry. No ectopy throughout hospitalization other than mild bradycardia while sleeping likely related to TORRI. -Allowed for permissive hypertension with acute stroke. Ordered labetalol 10 mg IV every 6 hours as needed for SBP > 200 mmHg and DBP > 110 mmHg. -Started and continued hydrochlorothiazide 50 mg daily, losartan 50 mg daily, and clonidine 0.1 mg twice daily. Patient continued to have moderately persistent hypertension with SBP 170's mmHg on 3 antihypertensives. Insisted close follow-up with [facility] PCP within 3-5 days and further outpatient work-up if hypertension continues to persist. 3. Tobacco dependence, chronic, present on admission. Active. -History of smoking 2 packs per day since age 20 with a 66 pack year history of smoking. -Patient denies shortness of breath or dyspnea on exertion, no complaints of cough. -Educated patient on smoking and smoking cessation. Patient is not interested in quiting. -Ordered Nicoderm patch as needed. Patient initially refused. 4. Obstructive sleep apnea, chronic, present on admission. Active. -Patient has reported severe TORRI but does not use his CPAP as the settings need to be updated. -Continuous pulse oximetry throughout hospitalization. Provided supplemental oxygen as needed with oxygen saturation goal 88-92%. -Ordered respiratory therapy evaluation and treatment per CPAP protocol. -Recommended repeat outpatient sleep study to update CPAP settings. 5. Alcohol dependence vs abuse, chronic, present on admission. Stable. -Patient endorsed drinking 3-4 beers a night most nights when in [place] and then none while he is in [place]. He splits his time equally 2:2 and sometimes 3:1. -Recommended alcohol cessation as likely substantially contributing to his hypertension. Status at Discharge Overall status at discharge: patient is progressing back to baseline Exam Vital Signs (past 8 hours): - 10/20/18 05:00 10/20/18 05:41 10/20/18 06:15 Temperature 97.4 F L Pulse Rate 64 63 60 Respiratory Rate 16 Blood Pressure 180/109 H 180/109 H 172/98 H Pulse Oximetry 93 10/20/18 08:40 10/20/18 09:01 10/20/18 09:58 Temperature 97.5 F L Pulse Rate 61 Respiratory Rate 18 Blood Pressure 190/95 H 186/92 H Pulse Oximetry 92 93 10/20/18 10:39 Temperature Pulse Rate Respiratory Rate Blood Pressure 176/92 H Pulse Oximetry Oxygen Delivery Method Room Air Oxygen Flow Rate 0 Narrative Exam Narrative: General: Middle age male sitting at bedside in no acute distress, well-developed, well-nourished, irritable and short tempered but otherwise appropriately interactive HEENT: Normocephalic, atraumatic. External ears without defect. Pupils equal, round, and reactive to light. Anicteric sclerae, moist conjunctivae, and no lid lag. Oropharynx free of erythema and cobble stoning with moist mucosa. Neck: Supple with full range of motion. No jugular venous distension. No bruits. No lymphadenopathy or thyromegaly. Cardiovascular: Regular rate and rhythm with no murmurs, rubs, or gallops appreciated Pulmonary: Diminished throughout but clear to auscultation bilaterally with occasional expiratory wheeze. No crackles or honchi. Normal respiratory effort with no use of accessory muscles. Abdomen: Soft, bowel sounds present, nontender, nondistended. No hepatosplenomegaly or masses appreciated. Extremities: No clubbing, cyanosis, or edema. Skin: Normal temperature, turgor, and texture; no rash, ulcers, or subcutaneous nodules appreciated. Neurological: Subtle right facial droop, dysarthria, weakness of the right arm and leg, and discoordination of right arm and leg. Psychiatric: Irritable mood, short tempered with flat affect. Alert and oriented to person, place, and time. Objective Labs Result Diagrams: 10/19/18 01:03 10/20/18 08:30 Labs: Laboratory Results - last 24 hr 10/19/18 10/20/18 01:03 08:30 Sodium 139 Potassium 4.2 Chloride 103 Carbon Dioxide 28 BUN 15 Creatinine 1.10 Estimated GFR > 60.0 BUN/Creatinine Ratio 13.6 Glucose 106 H Hemoglobin A1c 5.1 Calcium 10.0 Discharge Plan Discharge Plan Patient Disposition: Home Discharge comment: You are being discharged home. You have had and a left rodri stroke. It is very important to continue physical and speech therapy and your PCP will have to refer you to both. You also have volume loss of your brain globally likely from alcohol use and recommend cutting back or stopping as discussed. You have been prescribed aspirin 81 mg daily (please take with food) and atorvastatin 80 mg daily at bedtime to prevent stroke. You have also been prescribed clonidine 0.1 mg twice daily, hydrochlorothiazide 50 mg daily, and losartan 50 mg daily to treat your high blood pressure. These medications may be adjusted to continue to control your blood pressure. Your goal blood pressure is less than 140/90. You also need to have a updated sleep study and wear CPAP at night. You are at high risk of recurrent stroke. Please stop smoking indefinitely. If you are unable to stop completely please try to cut back substantially. Discharge Med Rec/Prescriptions Prescriptions: New losartan 50 mg Tablet 50 mg PO DAILY Qty: 30 RF: 0 clonidine HCl 0.1 mg Tablet 0.1 mg PO BID Qty: 60 RF: 0 aspirin 81 mg Tablet,Delayed Release (Dr/Ec) 81 mg PO DAILY Qty: 30 RF: 0 hydrochlorothiazide 25 mg Tablet 50 mg PO DAILY Qty: 30 RF: 0 atorvastatin 80 mg tablet 80 mg PO BEDTIME Qty: 30 RF: 0 nicotine [Nicoderm CQ] 21 mg/24 hr patch 24 hour 1 patch Transdermal DAILY Qty: 28 RF: 0 Provider Discharge Instructions Diet: Low-fat, Low-sodium and Low-cholesterol Activity: Activity as tolerated Visit Report/Discharge Packet Instructions: The DASH Diet, Cigarette Addiction (Alternative Therapy), Ischemic Stroke, Essential Hypertension, DI for Stroke-Ischemic, DI for Malignant Hypertension, Left-side Stroke, How to Quit Tobacco Products Discharge Data Attending Provider: Ermias Conte Admit Date/Time: 10/19/18 02:20 Discharges patient from system. Discharge Date/Time: 10/20/18 13:25
--- NOTE | 2018-10-20 13:21 | ST.IPCSEOM ---
Care Team Visit Care Team Role Provider Type Mohsen Machado DO Emergency Provider Physician Specialty: Emergency Medicine Address: [address] [place] [address], [id number] Email: [email or web address] Justice Admit Provider Physician Attending Provider Specialty: Internal Medicine Address: [address] [place] [address], [id number] Email: Current Diagnoses Cerebral infarction, unspecified (10/19/18) Past Medical History (Last Updated 10/19/18 @ 03:17 by UMANG Justice) Current every day smoker (Acute Medical) Hypertension (Acute Medical) Sleep apnea (Acute Medical) Speech-Language 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 Clinical Swallow Evaluation Start: 10/20/18 12:56 Freq: Status: Active Protocol: Document 10/20/18 12:56 LNK (Rec: 10/20/18 13:21 LNK [id number]) Clinical Swallow Evaluation Session Time Visit Start Time 11:15 Visit Stop Time 11:35 Total Visit Minutes 20 Setting Assessment Location Acute Care Visit Type Note Type Initial Evaluation Patient Information Identification Type Name ID Wristband History Per H&P: Dg Castro is a 53- year-old male patient with history significant for hypertension not on medication , current daily smoker and sleep apnea who presents to the ER on 10/19/18 with dysarthria, right facial droop , right hand weakness and discoordination. The patient states he woke with the symptoms on Saturday morning 2 days ago. The patient reports going to bed night in his normal state of health and waking with symptoms of dysarthria, difficulty word finding and discoordination. He relates of going to the bank and could not recall how to write a check and had difficulty holding a pen. The patient is not been seen by healthcare provider for several years and is currently on no medication and reports no allergies to medications. He does have ?bad? sleep apnea but does not use his CPAP machine. He is a current smoker since age 20 and endorses a 2 pack-a-day habit. Subjective Observations Pt was in his room with present. Introduced self and my purpose for visiting pt. Pt remarked that he has a little bit of slurred speech.. . and can't say my words right , when asked. He reported no difficulty eating or drinking . Pt was anxiously waiting to be discharged home. Evaluation Liquids Trialed Thin Solids Trialed Regular Administration Type Cup Consecutive Sips Straw Self-Feeding Oral Impairment WFL Oral Strategies Upright at 90 degrees Oral Phase Comments Oral phase of swallow WFL. Pt was able to adequately masticate and swallow regular cracker texture without s/sx aspiration. Adequate dentition, good bolus formation and A-P transit. No oral residue observed post- swallow. Pharyngeal Impairment WFL Pharyngeal Strategies Sitting Upright (90 deg) Pharyngeal Phase Comments Pharyngeal phase of swallow WFL. Adequate hyolaryngeal elevation/forward excursion ( per palpation) with strong volitional cough. No cough/ choke/throat clear observed, no wet voicing. Findings Dysphagia Type No dyspahgia noted Impressions Dg Castro presented with oropharyngeal swallowing WFL following CVA. He safely tolerated al PO trials without overt s/sxv aspiration. Dg also reported and was observed to demonstrate mild dysarthria with mild word- finding problems. He reported that if he slows down his speech and concentrates on what he is saying, he is able to work around his communication deficits. Extensive education re: potential swallowing and communication deficits that may occur with CVA. He was encouraged to be alert for frequent pneumonia and/or coughing with meals as well as an increase in slurred speech or word-finding difficulty. Additionally, he was strongly encouraged to seek out medical assistance if he should notice any changes in his overall condition. Outpatient speech/swallowing therapy was also discussed with Dg, who noted his schedule is difficulty due to traveling to [place] every three weeks. Diet Recommendations Liquids Order Thin Diet Order Regular Medication Recommendations As Tolerated Aspiration Precautions Recommended Precautions Upright at 90 Degrees Treatment Plan Placement Recommendations after Home Discharge Appropriate for Therapy No
--- NOTE | 2018-10-20 14:11 | CM.DANOTE ---
DCP/Assessment: Reviewed chart. Patient is a 53yr old male admitted to [facility] under [facility] status with stroke like symptoms. No PCP listed. Primary payor is 1) [employer]. Spoke with Dr. Turcios in AM rounds. She reports that patient continues to want to leave the hospital. Patient waiting for MRI to determine if he had a stroke. Dr. Turcios suspects that patient anxious because of nicotine withdrawal. Patient offered patch an declined. Patient also may have alcohol history. Attempted to meet with patient this afternoon and patient had already been medically discharged. Spoke with Dr. Turcios and she reports MRI completed and results provided to patient. Patient encouraged strongly not to smoke. P: Home today. KURTIS Davis
== END 2018-10-20 13:25 | disposition home or self-care (01) | DRG 65 ==
LOC: ED 02:20 → AC 02:30
PROVIDERS: Internal Medicine; Admitting Provider Nurse Practitioner Adult Health; Emergency Provider Emergency Medicine; Visit Provider Nurse Practitioner Adult Health
DX: I63.9 Cerebral infarction, unspecified (principal); G81.91 Hemiplegia, unspecified affecting right dominant side; R29.810 Facial weakness; R47.1 Dysarthria and anarthria; R29.705 NIHSS score 5; G47.33 Obstructive sleep apnea (adult) (pediatric); F17.210 Nicotine dependence, cigarettes, uncomplicated; I10 Essential (primary) hypertension; F41.9 Anxiety disorder, unspecified
CPT/HCPCS: 36415; 36591; 70450; 70548; 70553; 80048; 80061; 80305; 83036; 83735; 85025; 85610; 85730; 92610; 93005; 94762; 96360; 97162; 97530; 99283; 99285; 99406

== ENCOUNTER → 2019-03-25 07:51 | Outpatient (CLI) | payer OTHER, SELFPAY ==
[2018-10-19 02:24] VITALS: BMI 29.2
--- NOTE | 2019-03-25 | DI.ECHO.S_ITS ---
[facility] +---------+ : : [address] : : : : [id number] : : : : Phone: [phone]---------+ Echocardiogram Report + + :Name: JINNY RUGGIERO Study Date: 03/25/2019 Height: 74 in : :[facility] Weight: 224 lb : : Gender: Male BSA: 2.3 m2 : :: 1965 Age: 53 yrs BP: 177/88 mmHg: :Reason For Study: CVA : : Performed By: Tommy Woo : :Referring: NETO GREER : + + Interpretation Summary 1) Normal left ventricular size, thickness, wall motion, and systolic function (EF 60-65%). 2) Normal right ventricular size and function. 3) No significant valvular abnormalities. 4) Injection of contrast with valsalva documented an interatrial shunt. 5) The ascending aorta is mildly enlarged at 4.0. 6) HTN present during the study (BP 177/88mmHg). 7) No prior Echo available for comparison. Procedure: A two-dimensional transthoracic echocardiogram with color flow and Doppler was performed. The study quality was technically good. There is no prior echocardiogram noted for this patient. A saline contrast injection was performed to assess for cardiac shunting. The patient was in normal sinus rhythm during the exam. Left Ventricle: The left ventricle is normal in size. There is normal left ventricular wall thickness. The ejection fraction is estimated to be 60-65%. There are no focal wall motion abnormalities. Right Ventricle: The right ventricle is normal in size and function. Atria: The left atrium is moderately dilated. The right atrium is mildly dilated. Injection of contrast with valsalva documented an interatrial shunt. Mitral Valve: The mitral valve is normal in structure and function. There is trace mitral regurgitation. Aortic Valve: The aortic valve is trileaflet. The aortic valve opens well. There is no aortic valve stenosis. No aortic regurgitation is present. Tricuspid Valve: The tricuspid valve is normal in structure and function. There is trace tricuspid regurgitation. The right ventricular systolic pressure is estimated to be at least 23 mmHg based on an estimated right atrial pressure of 3 mm Hg. Pulmonic Valve: The pulmonic valve is normal in structure and function. There is trace pulmonic regurgitation. Great Vessels: The aortic root is normal size. The ascending aorta is mildly enlarged. The pulmonary artery is normal size. The IVC is of normal diameter and collapses greater than 50% with a sniff. This suggests a low right atrial pressure of 3 mm Hg. Pericardium/ Pleura There is no pericardial effusion. There is no pleural effusion. MMode/2D Measurements & Calculations LVIDd: 5.3 cm LVOT diam: 2.5 cm LVIDs: 3.7 cm Ao root diam: 3.8 cm FS: 29.7 % Aortic Jxn: 3.2 cm EPSS: 0.74 cm asc Aorta Diam: 4.0 cm IVSd: 1.3 cm LVPWd: 1.2 cm LV huynh. diameter/BSA (cm/m^2): 2.3 LV sys. diameter/BSA (cm/m^2): 1.6 LA dimension: 4.2 cm RA long axis: 5.5 cm LA A2 area: 30.1 cm2 RA area: 22.9 cm2 LA A4 area: 25.2 cm2 RA vol: 80.6 ml LA length (vol): 5.9 cm RA : 35.3 ml/m2 LA vol: 109.2 ml IVC diam: 1.7 cm LA vol index: 47.9 ml/m2 Doppler Measurements & Calculations Ao V2 max: 128.8 cm/sec LVOT Max Dinesh: 112.4 cm/sec Ao V2 mean: 98.2 cm/sec LV V1 max P.1 mmHg Ao max P.6 mmHg LV V1 VTI: 24.6 cm Ao mean P.0 mmHg REGIS(I,D): 4.3 cm2 Ao V2 VTI: 28.3 cm REGIS(V,D): 4.3 cm2 sev ratio: 0.87 REGIS indexed to BSA (cm^2/m^2): 1.9 MV E max dinesh: 70.4 cm/sec TR max dinesh: 224.7 cm/sec MV A max dinesh: 76.5 cm/sec TR max P.2 mmHg MV E/A: 0.92 PA V2 max: 61.3 cm/sec Med Peak E' Dinesh: 5.4 cm/sec PA V2 mean: 46.7 cm/sec E/E' med: 13.1 PA mean P.93 mmHg Lat Peak E' Dinesh: 8.4 cm/sec PA pr(Accel): 24.1 mmHg E/E' lat: 8.4 PA Accel Time: 0.12 sec E/e' average: 10.8 MV dec time: 0.19 sec SV(LVOT): 121.0 ml [place] Physician:11:23 PM
== END ==
PROVIDERS: PCP Family Medicine; Visit Provider Internal Medicine Cardiovascular Disease
DX: I77.89 Other specified disorders of arteries and arterioles (principal); I10 Essential (primary) hypertension; Z86.73 Personal history of transient ischemic attack (TIA), and cerebral infarction without residual deficits
CPT/HCPCS: 93306